=== PATIENT | male | born 1960 | race African-American/Black ===

== ENCOUNTER 2022-04-21 13:41 | Emergency (ER) | payer OTHER ==
[~2022-04-21] VITALS: Ht 177.8 cm; Wt 95.3 kg
[2022-04-21 14:01] VITALS: BP_SYST 136
--- NOTE | 2022-04-21 14:24 | NUR ---
Patient to ER bed 3 to gown for evaluation. Side rails up. Report given to .
--- NOTE | 2022-04-21 14:25 | NUR ---
ER at bedside examining patient.
[2022-04-21] MEDS ORDERED: KETOROLAC TROMETHAMINE 30 MG VIAL IVP ONE (14:30)
[2022-04-21] MEDS ORDERED: ONDANSETRON HCL 4 MG/2 ML VIAL IVP ONE (14:45)
[2022-04-21] MEDS ORDERED: NACL 0.9% 1,000 ML IV ONE (14:45)
[2022-04-21 14:46] LABS: BASOPHILS # (AUTO) 0.1 K/uL (0.0-0.2); BASOPHILS % (AUTO) 0.7 % (0.0-2.0); HEMATOCRIT 41.5 % (36-54); HEMOGLOBIN 14.8 g/dL (14.0-18.0); LYMPHOCYTES # (AUTO) 2.5 K/uL (1.0-5.5); LYMPHOCYTES % (AUTO) 14.3 % (20.5-51.5); MEAN CORPUSCULAR HEMOGLOBIN 32 pg (27-31); MEAN CORPUSCULAR HGB CONC 36 % (32-36); MEAN CORPUSCULAR VOLUME 89 fL (79.0-98.0); MONOCYTES # (AUTO) 1.3 K/uL (0.0-1.0); MONOCYTES % (AUTO) 7.8 % (1.7-9.3); NEUTROPHILS # (AUTO) 13.3 K/uL (1.8-7.7); NEUTROPHILS % (AUTO) 77.2 % (40.0-70.0); PLATELET COUNT (AUTO) 168 K/uL (130-430); RED BLOOD CELL COUNT(AUTO) 4.69 MIL/uL (4.2-6.2); RED CELL DISTRIBUTION WIDTH 12.7 % (9.0-15.0); WHITE BLOOD COUNT (AUTO) 17.3 K/uL (4.8-10.8)
[2022-04-21 14:51] LABS: CALCIUM 9.2 mg/dL (8.4-11.0); CREATININE 1.12 mg/dL (0.55-1.30)
[2022-04-21 14:57] LABS: ALBUMIN 3.5 g/dL (3.4-4.8); TOTAL BILIRUBIN 2.6 mg/dL (0.0-1.0)
--- NOTE | 2022-04-21 15:00 | NUR ---
# 20 gauge angiocath placed to Right AC. Use of asceptic technique. Opsite placed over site. Blood return noted. Blood for lab drawn from site. Flushed with 10 cc of normal saline. No evidence of infiltration noted. Patient tolerated well.
--- NOTE | 2022-04-21 15:30 | NUR ---
Patient medicated per order, patient tolerated well.
[2022-04-21] MEDS ORDERED: POTASSIUM CHLORIDE 20 MEQ/PKT PACKET PO ONE (16:00)
[2022-04-21] MEDS ORDERED: cefTRIAXone 1 GM in D5W 50 ML IV ONE (16:00)
--- NOTE | 2022-04-21 16:00 | NUR ---
Patient unable to provide urine sample, aware.
[2022-04-21] MEDS ORDERED: cefTRIAXone 1 GM VIAL ONE (16:13)
[2022-04-21] MEDS ORDERED: TAMS-11 PO (17:27)
[2022-04-21] MEDS ORDERED: CIPR500T5 PO (17:27)
[2022-04-21] MEDS ORDERED: IBUP-1969 PO (17:27)
[2022-04-21 17:35] VITALS: BP_SYST 139
--- NOTE | 2022-04-21 17:36 | NUR ---
Patient given written and verbal discharge instructions and verbalizes understanding. ER MD discussed with patient the results and treatment provided. Patient in stable condition. ID arm band removed. IV catheter removed intact and dressing applied, no active bleeding. Rx of given. Patient educated on pain management and to follow up with PMD. Opportunity for questions provided and answered. Medication side effect fact sheet provided.
== END 2022-04-21 17:35 | disposition home or self-care (01) ==
LOC: SED 13:41
DX: N23 Unspecified renal colic (principal); E87.6 Hypokalemia; R30.0 Dysuria; R50.9 Fever, unspecified; Z79.899 Other long term (current) drug therapy
CPT/HCPCS: 99284; 74176; 96374; 96375; 80053; 83690; 85025; 87040; 36415; 76376; 83605; J0696; J1885; J2405; J7030